=== PATIENT | female | born 1985 | race Caucasian/White ===

== ENCOUNTER 2022-05-29 17:22 | Outpatient (CLI) | payer OTHER | END 2022-05-29 18:41 | disposition home or self-care (01) | LOC: NST 17:22 | PROVIDERS: ATTEND Obstetrics & Gynecology Gynecology | DX: Z34.83 Encounter for supervision of other normal pregnancy, third trimester (principal) ==

== ENCOUNTER 2022-06-14 14:00 | Inpatient (IN) | payer OTHER ==
[~2022-06-14] VITALS: Ht 162.6 cm; Wt 63.5 kg
[2022-06-28] MEDS ORDERED: PRENATAL TABLE1 EAC3 (08:18)
== END 2022-06-30 12:52 | disposition home or self-care (01) | DRG 807 ==
LOC: LDR 06-24 14:00 → OB/GYN 06-28 11:59
PROVIDERS: ADMIT Obstetrics & Gynecology; ATTEND Obstetrics & Gynecology
PROC: 10E0XZZ Delivery of Products of Conception, External Approach (ICD-10-PCS; principal; 2022-06-28)
PROC: 0UQMXZZ Repair Vulva, External Approach (ICD-10-PCS; 2022-06-28)
PROC: 4A1HXCZ Monitoring of Products of Conception, Cardiac Rate, External Approach (ICD-10-PCS; 2022-06-28)
DX: O71.82 Other specified trauma to perineum and vulva (principal); Z37.0 Single live birth; Z3A.40 40 weeks gestation of pregnancy; Z20.822 Contact with and (suspected) exposure to COVID-19

== ENCOUNTER 2022-06-23 11:29 | Outpatient (CLI) | payer OTHER | END 2022-06-23 12:54 | disposition home or self-care (01) | LOC: NST 11:29 | PROVIDERS: ATTEND Obstetrics & Gynecology | DX: Z34.83 Encounter for supervision of other normal pregnancy, third trimester (principal) ==